=== PATIENT | male | born 1980 | race Caucasian/White ===

== ENCOUNTER → 2018-02-15 | Day surgery (SDC) | payer BC ==
[~2018-02-15] MED LIST: Lactated Ringers 1,000 ML IV SCH; Propofol 200 MG/20 ML SDV IV ONE
--- NOTE | 2018-02-15 12:18 | OR ---
DATE OF OPERATION: 02/15/2018 PREOPERATIVE DIAGNOSIS: GASTROESOPHAGEAL REFLUX DISEASE. POSTOPERATIVE DIAGNOSIS: GASTROESOPHAGEAL REFLUX DISEASE. SURGEON: Alexander London MD PROCEDURE PERFORMED: Upper GI endoscopy with CLOtest. ANESTHESIA: IV sedation by MANAGER BEAUTY and Cetacaine spray. OPERATIVE PROCEDURE: After the patient's oropharyngeal mucosa was anesthetized, he was made to swallow the gastroscope down. The patient's esophagus was within normal limits. There is no evidence of any esophagitis. The EG junction is close to 40 cm level. There is no sliding hiatal hernia. Body of the stomach, antrum, pyloric channel, 1st and 2nd part of duodenum were examined. They were free of any ulcer disease, any tumor mass, any polypoid lesion. Gastroscope was retroverted and fundus was examined. It was also free of any pathology. A biopsy for CLOtest was taken. Multiple photographs were taken and gastroscope was gradually withdrawn. The patient tolerated the procedure well and left the operating room in satisfactory condition. NAKIA/CINDY /[id number]
[2018-02-15 12:24] VITALS: BP 104/61
== END ==
LOC: CC.SDS 10:39
PROVIDERS: ATTEND Surgery
DX: K21.9 Gastro-esophageal reflux disease without esophagitis (principal); Z88.0 Allergy status to penicillin; Z88.2 Allergy status to sulfonamides; Z91.018 Allergy to other foods; Z79.899 Other long term (current) drug therapy
CPT/HCPCS: 87081; J2704; J7120

== ENCOUNTER 2018-02-17 14:01 | Emergency (ER) | payer BC ==
[2018-02-17 14:12] VITALS: BP 139/89
[2018-02-17 15:02] LABS: CHLORIDE,CL 105 mEq/L (98-106); SODIUM,NA 142 mEq/L (136-145)
--- NOTE | 2018-02-17 15:22 | EDM.PDOC ---
ED HPI GENERAL MEDICAL PROBLEM - General Chief Complaint: General Stated Complaint: Left side/abd pain Time Seen by Provider: 02/17/18 14:23 Source of Information: Reports: Patient History Limitations: Reports: No Limitations - History of Present Illness INITIAL COMMENTS - FREE TEXT/NARRATIVE: Has been doctoring with Dr. Granados for this pain and has recent workup for gallbladder and EGD all of which have been normal. At about 1300 today the pain did get worse and it was more in the left upper quadrant. He had more nausea with it. He has not had fever or chills from this. He presented at this time to the ER to be further evaluated. He did have 3:[address] Granados to go over results of EGD and PAPA test. He states that some of the pain does rotate around the left side into the left flank area. He denies any urinary symptoms or history of kidney stones. Did have small liquid emesis in the ER. He is currently laying on the left side stating it feels better. All previous labs done by Dr. Granados have been normal. He states that the pain is worse at this time compared to what it was. Onset: Gradual Location: Reports: Abdomen Associated Symptoms: Reports: Nausea/Vomiting Left Flank Pain Score (Numeric/FACES): 10 - Related Data Allergies Allergy/AdvReac Type Severity Reaction Status Date / Time onion Allergy Cannot Verified 02/17/18 14:13 Remember Penicillins Allergy Cannot Verified 02/17/18 14:13 Remember Sulfa (Sulfonamide Allergy Cannot Verified 02/17/18 14:13 Antibiotics) Remember tree nut Allergy Cannot Verified 02/17/18 14:13 Remember Home Meds: Home Meds Pantoprazole [Protonix] 40 mg PO DAILY 04/14/16 [History] Past Medical History - Past Surgical History GI Surgical History: Reports: EGD Social & Family History - Tobacco Use Smoking Status *Q: Never Smoker - Caffeine Use Caffeine Use: Reports: Other Other Caffeine Use: occasional - Living Situation & Occupation Living situation: Reports: , with Family Occupation: Employed ED ROS GENERAL - Review of Systems Review Of Systems: See Below Constitutional: Denies: Fever, Chills HEENT: Reports: No Symptoms Respiratory: Reports: No Symptoms Cardiovascular: Reports: No Symptoms GI/Abdominal: Reports: Abdominal Pain, Nausea, Vomiting. Denies: Constipation, Diarrhea : Reports: Flank Pain. Denies: Dysuria, Frequency, Pain Musculoskeletal: Reports: No Symptoms Skin: Reports: No Symptoms Neurological: Reports: No Symptoms ED EXAM, GENERAL - Physical Exam Exam: See Below Exam Limited By: No Limitations General Appearance: Alert, Moderate Distress Ears: Normal External Exam, Normal Canal Head: Atraumatic, Normocephalic Neck: Normal Inspection, Supple, Non-Tender Respiratory/Chest: No Respiratory Distress, Lungs Clear, Normal Breath Sounds Cardiovascular: Regular Rate, Rhythm, No Edema GI/Abdominal: Normal Bowel Sounds, Soft, Tender (to the LUQ and the midepigastric area with palpation. NO CVA tenderness.). No: Guarding, Rigid Back Exam: Normal Inspection Extremities: Normal Inspection, No Pedal Edema Neurological: Alert, Oriented Psychiatric: Normal Affect Skin Exam: Warm, Dry Course - Vital Signs Last Recorded V/S: Last Vital Signs Temp 98.0 F 02/17/18 14:09 Pulse 73 02/17/18 14:09 Resp 18 02/17/18 14:09 BP 139/89 02/17/18 14:09 Pulse Ox 99 02/17/18 14:09 - Orders/Labs/Meds Orders: Active Orders 24 hr Category Date Time Status Chest 2V [CR] Stat Exams 02/17/18 14:29 Taken Labs: Laboratory Tests 02/17/18 02/17/18 02/17/18 Range/Units 14:29 14:31 14:31 WBC 9.4 (5.0-10.0) 10^3/uL RBC 5.28 (4.50-6.00) 10^6/uL Hgb 15.6 (14.0-18.0) g/dL Hct 46.0 (40.0-54.0) % MCV 87.1 (82.0-94.0) fL MCH 29.5 (27.0-32.0) pg MCHC 33.9 (33.0-38.0) g/dL RDW Coeff of Marcia 12.9 (11.0-15.0) % Plt Count 264 (150-400) 10^3/uL Neut % (Auto) 71.2 (35-85) % Lymph % (Auto) 21.7 (10-55) % [place] % (Auto) 6.5 (0-16) % Eos % (Auto) 0.4 (0-5) % Baso % (Auto) 0.2 (0-3) % Neut # (Auto) 6.67 (1.80-7.00) 10^3/uL Lymph # (Auto) 2.03 (1.00-4.80) 10^3/uL [place] # (Auto) 0.61 (0.00-0.80) 10^3/uL Eos # (Auto) 0.04 (0.00-0.45) 10^3/uL Baso # (Auto) 0.02 10^3/uL Sodium 142 (136-145) mEq/L Potassium 4.0 (3.5-5.0) mEq/L Chloride 105 (98-106) mEq/L Carbon Dioxide 26 (21-32) mmol/L BUN 13 (7-18) mg/dL Creatinine 1.5 H (0.7-1.3) mg/dL Est Cr Clr Drug Dosing 70.97 mL/min Estimated GFR (MDRD) 53 L (>=60) mL/min Glucose 112 H (75-99) mg/dL Calcium 9.2 (8.4-10.1) mg/dL Total Bilirubin 0.8 (0.0-1.0) mg/dL AST 29 (15-37) U/L ALT 60 (12-78) U/L Alkaline Phosphatase 69 (46-116) U/L C-Reactive Protein < 0.2 L (0.2-0.8) mg/dL Total Protein 8.0 (6.4-8.2) g/dL Albumin 4.4 (3.4-5.0) g/dL Urine Color Yellow (YELLOW) Urine Appearance Clear (CLEAR) Urine pH 5.0 (4.5-8.0) Ur Specific [place] <= 1.005 (1.003-1.020) Urine Protein Negative (NEGATIVE) mg/dL Urine Glucose (UA) Negative (NEGATIVE) mg/dL Urine Ketones Negative (NEGATIVE) mg/dL Urine Occult Blood Negative (NEGATIVE) Urine Nitrite Negative (NEGATIVE) Urine Bilirubin Negative (NEGATIVE) Urine Urobilinogen 0.2 (0.2-1.0) EU/dL Ur Leukocyte Esterase Negative (NEGATIVE) Urine RBC Not seen (0-5) /HPF Urine WBC Not seen (0-5) /HPF Departure - Departure Time of Disposition: 15:20 Disposition: Home, Self-Care 01 Condition: Good Clinical Impression: Abdominal pain - Discharge Information Referrals: Palomo Granados MD [Primary Care Provider] - Forms: ED Department Discharge Additional Instructions: Will set up appt with Dr. Christine for consult Continue the meds for the nausea and protonix until seen by surgeon Avoid spicy or fatty foods until seen Use Immodium AD or pepto if diarrhea occurs. - Problem List & Annotations (1) Abdominal pain SNOMED Code(s): 96155409 Code(s): R10.9 - UNSPECIFIED ABDOMINAL PAIN Status: Acute - Problem List Review Problem List Initiated/Reviewed/Updated: Yes - My Orders Last 24 Hours: My Active Orders 02/17/18 14:29 Chest 2V [CR] Stat - Assessment/Plan Last 24 Hours: My Active Orders 02/17/18 14:29 Chest 2V [CR] Stat Plan: Discussed case and reviewed labs and EKG with Dr. Granados his PCP. He would like him referred to Dr. Christine for consult for possible diagnostic lap to determine the cause of his pain. Discussed this with both pt and . Will call when appt can be made. They voice understanding of this. Copies of previous labs, and testing that has been done, along with this note and Dr. Granados's clinic notes will be forwarded to his office. He is to continue on the Pantoprazole until that appt can be made.
== END 2018-02-17 15:25 | disposition home or self-care (01) ==
LOC: CC.ED 14:01
DX: R10.12 Left upper quadrant pain (principal); Z88.0 Allergy status to penicillin; Z91.018 Allergy to other foods; Z88.2 Allergy status to sulfonamides; Z79.899 Other long term (current) drug therapy
CPT/HCPCS: 36415; 71046; 80053; 81001; 85025; 86140; 93005; 99284

== ENCOUNTER → 2019-07-07 | Day surgery (SDC) | payer BC ==
[~2019-07-07] MED LIST changes: -Lactated Ringers 1,000 ML IV SCH; +Lidocaine 1% with EPINEPHrine 1:100,000 20 ML MDV ONE; +Morphine 2 MG/ML Syringe IVPUSH ONE; -Propofol 200 MG/20 ML SDV IV ONE; +ceFAZolin 1 GM Vial IVPUSH ONE
[2019-07-07] MEDS: Lactated Ringers 1,000 ML IV SCH ×2 (09:13→11:55)
--- NOTE | 2019-07-07 10:58 | OR ---
DATE OF OPERATION: 07/07/2019 PREOPERATIVE DIAGNOSIS: GALLBLADDER POLYP. POSTOPERATIVE DIAGNOSIS: GALLBLADDER POLYP. SURGEON: Barron Medel MD PROCEDURE: LAPAROSCOPIC CHOLECYSTECTOMY. ANESTHESIA: General. ESTIMATED BLOOD LOSS: Minimum. SPECIMEN: Gallbladder. INDICATIONS: This 38-year-old male has some right upper quadrant abdominal pain. An ultrasound previously showed a gallbladder polyp. Followup ultrasound last month showed the polyp to still be persistent and possibly slightly larger. Although I cannot imagine this causes his symptoms, they still are diagnosing this as a gallbladder polyp. DESCRIPTION OF PROCEDURE: After adequate preparation, the infraumbilical incision was made and a 10 mm scope was inserted. The abdominal exploration was normal. Three other trocars were placed under direct vision. The cystic triangle structures at the gallbladder were dissected free and triply clipped and divided. The gallbladder was taken off the liver bed using cautery dissection. There was no bleeding or spillage of bile. The gallbladder was brought out through the epigastric trocar site. The abdomen desufflated and the skin closed with Vicryl. CHARLES/CINDY /[id number]
[2019-07-07 14:23] VITALS: BP 120/55; PULSE 60
== END ==
LOC: CC.SDS 08:42
PROVIDERS: ATTEND Surgery
DX: K81.1 Chronic cholecystitis (principal); K21.9 Gastro-esophageal reflux disease without esophagitis; E78.5 Hyperlipidemia, unspecified; E55.9 Vitamin D deficiency, unspecified; F41.9 Anxiety disorder, unspecified; F17.210 Nicotine dependence, cigarettes, uncomplicated; M19.90 Unspecified osteoarthritis, unspecified site; E66.9 Obesity, unspecified; Z68.34 Body mass index [BMI] 34.0-34.9, adult; Z88.0 Allergy status to penicillin; Z88.2 Allergy status to sulfonamides; Z79.899 Other long term (current) drug therapy
CPT/HCPCS: 47562; J2270; J7120